=== PATIENT | male | born 1960 | race Caucasian/White ===

== ENCOUNTER 2016-12-06 09:50 | Day surgery (SDC) ==
[2016-12-05 13:29] LABS: MANUAL DIFF NEEDED? NO
--- NOTE | 2016-12-05 13:38 | EKG Report ---
Test Performed on : 12/05/2016 1:02:31 PM Test Reason : PAT Blood Pressure : / mmHG Vent. Rate : 066 BPM Atrial Rate : 066 BPM P-R Int : 136 ms QRS Dur : 096 ms QT Int : 392 ms P-R-T Axes : 060 028 060 degrees QTc Int : 410 ms Normal sinus rhythm. Normal ECG No previous ECGs available Confirmed by Marques Edwards MD ([id number]) on 12/05/2016 9:57:21 PM
[2016-12-05 13:44] LABS: BASO% 0.3 % (0.0-0.8); EOS# 0.27 X1000 (0.0-0.7); EOS% 4.4 % (0.0-10.0); HEMATOCRIT 42.2 % (42.0-52.0); HEMOGLOBIN 14.2 g/dL (14.0-18.0); LYMPH# 2.26 X1000 (1.2-3.4); MCH 31.6 PG (27-31); MCHC 33.6 g/dL (33-37); MCV 93.8 FL (81-99); MONO# 0.94 X1000 (0.11-0.59); MONO% 15.4 % (1.7-9.3); NEUT% 42.9 % (42.2-75.2); PLT 256 X1000 (130-400)
[2016-12-05 13:54] LABS: AGAP 11; BUN 21 mg/dL (8-22); CHLORIDE 104 mmol/L (98-107); COSMO 280; SODIUM 140 mmol/L (136-145); TCO2 25 mmol/L (25-35)
[2016-12-06] MEDS ORDERED: REGLAN ONE (10:20)
[2016-12-06] MEDS ORDERED: NS 1,000 ML ONE ×2 (10:20→15:42)
[2016-12-06] MEDS ORDERED: PEPCID ONE (10:20)
[2016-12-06] MEDS ORDERED: KEFZOL 1 GM/D5W 50 ML ONE (10:21)
[2016-12-06] MEDS ORDERED: DIPRIVAN 1% 50 ML ONE (13:36)
[2016-12-06] MEDS ORDERED: FENTANYL ONE (15:29)
[2016-12-06] MEDS ORDERED: VERSED ONE (15:29)
[2016-12-06] MEDS ORDERED: PHENERGAN IM PRN (15:34)
[2016-12-06] MEDS ORDERED: RESTORIL PO PRN (15:35)
[2016-12-06] MEDS ORDERED: MILK OF MAGNESIA PO PRN (15:36)
[2016-12-06] MEDS ORDERED: B & O 16A SUPP PR PRN (15:36)
[2016-12-06] MEDS ORDERED: B & O 16A SUPP ONE (15:48)
[2016-12-06] MEDS ORDERED: OFIRMEV 1000 MG/ISOTONIC SOLN 100 ML ONE (16:04)
[2016-12-06] MEDS ORDERED: DECADRON ONE (16:04)
[2016-12-06] MEDS ORDERED: XYLOCAINE-MPF 2% ONE (16:04)
[2016-12-06] MEDS ORDERED: LR 1,000 ML ONE (16:04)
[2016-12-06] MEDS ORDERED: ZOFRAN ONE (16:04)
[2016-12-06] MEDS ORDERED: HUMULIN R SUBQ SCH (18:00)
--- NOTE | 2016-12-06 18:18 | OPERATIVE NOTE ---
PROCEDURE DATE: 12/06/2016 PREOPERATIVE DIAGNOSES: Benign prostatic hypertrophy with bladder outlet obstruction. POSTOPERATIVE DIAGNOSIS: Benign prostatic hypertrophy with bladder outlet obstruction. In addition patient had 1 cm stone in the bladder. PROCEDURES: 1. Cystoscopy, removal of the bladder stones. 2. TUR prostate. ANESTHESIA: General. SURGEON: Dr. Stevens. PROCEDURE: The patient was prepped and draped under general anesthesia. Apparently the spinal anesthesia failed. At any rate, he was prepped and draped in the dorsal lithotomy position. A #21 rigid cystoscope was introduced in the bladder. The bladder was inspected. There was a stone in the base of the bladder which was mulberry type, 1 cm in size. So with the bladder biopsy forceps the stone was removed. TUR of prostate. This was done with the X[employer]reme [employer] 1+ system. The continuous flow resectoscope was introduced and the prostate was resected starting with the right lateral lobe and then the left lateral lobe. Finally the bladder neck area and the apex of the prostate. We had resected about 20 g. ESTIMATED BLOOD LOSS: Was about 100 mL. Then I put in a 22 3-0 Thomas catheter connected to a bedside bag. The patient tolerated the procedure well and returned to the recovery room in stable condition.
[2016-12-06] MEDS: NS 1,000 ML IV SCH (18:27)
[2016-12-06] MEDS ORDERED: INSULIN LISPRO 15 UNIT SQ SCH (18:30)
[2016-12-06] MEDS: DEMEROL IM PRN ×2 (18:52→22:52)
[2016-12-06] MEDS: GLUCOPHAGE PO SCH (18:53)
[2016-12-06] MEDS: PERICOLACE PO SCH (18:53)
[2016-12-06] MEDS ORDERED: PNEUMOVAX 23 IM ONE (19:45)
--- NOTE | 2016-12-06 20:37 | CONSULTATION ---
DATE OF CONSULTATION: 12/06/2016 CHIEF COMPLAINT: I was asked to follow up on postoperative medical management for diabetes. HISTORY OF PRESENT ILLNESS: He is a pleasant, 56-year-old, white gentleman, who was admitted to the hospital for TURP for BPH by Dr. Stevens. He denies any chest pain. He is a patient of Dr. Philip in [place]. PAST MEDICAL HISTORY: Type 2 diabetes, BPH, hypertension, hyperlipidemia. PAST SURGICAL HISTORY: Lumbar spine surgery, sinus surgery, vasectomy and right inguinal herniorrhaphy. MEDICATIONS PRIOR TO ADMISSION: Aspirin 81 mg daily, Rapaflo 8 mg daily, Humalog insulin on sliding scale, Levemir 26 units at bedtime, Flonase nasal spray daily, metformin 1000 p.o. b.i.d., lovastatin 40 mg daily, lisinopril/ hydrochlorothiazide 10/12.5 daily, finasteride 5 mg daily, multivitamin 1 tablet daily. ALLERGIES: Not known. SOCIAL HISTORY: for 24 years with 4 children. Smoking half a pack a day. No alcohol. FAMILY HISTORY: Mother living with heart failure. Dad had diabetes and bypass surgery. REVIEW OF SYSTEMS: HEENT: No headache. No dizziness. No earache. No sore throat. Neck: No goiter. No lymphadenopathy. No bruit. Cardiopulmonary: No chest pain, shortness of breath, PND, orthopnea. Gastrointestinal: No nausea, vomiting, abdominal pain. Genitourinary: Thomas was placed. Extremities: No swelling of legs. No joint pain. Neurologic: No focal symptoms or weakness. PHYSICAL EXAMINATION: Vital Signs: Stable. 6 feet 2 inches, 186 pounds. HEENT: Atraumatic, normocephalic. Pupils equal and reactive to light. TMs are normal. Nose and throat within normal limits. Neck: Supple. No lymphadenopathy. No goiter. Chest: Bilateral air entry. No rales. No wheezing. Heart: Sounds are regular. Belly is soft, nontender. Good bowel sounds. No masses palpable. He had EMERSON hose stockings. Neurologic Examination: Nonfocal. INVESTIGATIONS: White cell count 6.1, hematocrit 42, platelets 256,000, SMA 7 is normal. ASSESSMENT AND PLAN: 1. A 56-year-old white male status post transurethral resection of the prostate , doing very well. 2. Type 2 diabetes on metformin insulin, Levemir along with sliding scale. Last A1c was 6.2. 3. Hyperlipidemia on Mevacor. 4. Hypertension on lisinopril. Check labs in the morning. 5. DVT/GI prophylaxis as directed. Once again, thank you for the kind referral. DM
[2016-12-06] MEDS ORDERED: LEVEMIR SUBQ SCH (21:00)
[2016-12-06] MEDS: KEFZOL 1 GM/D5W 50 ML IV SCH (22:53)
[2016-12-06] MEDS ORDERED: INSULIN PEN NEEDLES ONE (23:00)
[2016-12-06] MEDS: PERIDEX MT SCH (23:02)
[2016-12-06] MEDS: HUMALOG SUBQ SCH (23:03)
[2016-12-07] MEDS: DEMEROL IM PRN ×3 (02:40→12:43)
[2016-12-07] MEDS: KEFZOL 1 GM/D5W 50 ML IV SCH ×2 (05:15→13:40)
[2016-12-07 06:04] LABS: MANUAL DIFF NEEDED? NO
[2016-12-07 06:05] LABS: BASO% 0.1 % (0.0-0.8); EOS# 0.08 X1000 (0.0-0.7); HEMATOCRIT 38.6 % (42.0-52.0); HEMOGLOBIN 13.3 g/dL (14.0-18.0); IMM GRAN# 0.02 X1000 (0.0-0.04); IMM GRAN% 0.3 % (0.0-0.5); LYMPH# 1.82 X1000 (1.2-3.4); LYMPH% 23.6 % (20.5-51.1); MCH 31.5 PG (27-31); MCHC 34.5 g/dL (33-37); MCV 91.5 FL (81-99); MONO# 0.98 X1000 (0.11-0.59); MONO% 12.7 % (1.7-9.3); MPV 10.1 FL (7.4-10.4); NEUT% 62.3 % (42.2-75.2); PLT 213 X1000 (130-400); RBC 4.22 XMIL (4.7-6.1)
[2016-12-07] MEDS: HUMALOG SUBQ SCH ×2 (06:17→11:15)
[2016-12-07 06:29] LABS: AGAP 9; BUN 13 mg/dL (8-22); CALCIUM 8.5 mg/dL (8.8-10.2); CHLORIDE 99 mmol/L (98-107); COSMO 273; POTASSIUM 4.4 mmol/L (3.5-5.1); SODIUM 134 mmol/L (136-145); TCO2 26 mmol/L (25-35)
[2016-12-07] MEDS: PERIDEX MT SCH (08:25)
[2016-12-07] MEDS: PERICOLACE PO SCH ×2 (08:26→12:44)
[2016-12-07] MEDS: GLUCOPHAGE PO SCH (08:26)
[2016-12-07] MEDS ORDERED: CENTRUM SILVER PO SCH (09:00)
[2016-12-07] MEDS ORDERED: FLONASE NAS SCH (09:00)
[2016-12-07] MEDS ORDERED: MEVACOR PO SCH (09:00)
[2016-12-07] MEDS ORDERED: PRINZIDE 10/12.5MG PO SCH (09:00)
[2016-12-07 11:31] VITALS: BP 115/62
[2016-12-07] MEDS: NS 1,000 ML IV SCH (11:49)
--- NOTE | 2016-12-07 16:04 | DISCHARGE SUMMARY ---
ADMISSION DATE: 12/06/2016 DISCHARGE DATE: 12/07/2016 DISCHARGE DIAGNOSES: 1. Benign prostatic hypertrophy with bladder outlet obstruction. 2. Bladder stones. 3. Diabetes type 2 out of control. PROCEDURES: 1. TURP. 2. Removal of bladder stones. COMPLICATIONS: None. HOSPITAL COURSE: The patient is being discharged home with a Thomas catheter connected to a leg bag. Discharge instructions were given. Discharge medications are Benita-Colace, [employer] 7.5, and doxycycline. Dr. Velazquez saw him in consultation for medical problems.
== END 2016-12-07 15:30 | disposition home or self-care (01) ==
LOC: PAT 09:50 → 4N 15:29 → UNDOADMOB 15:29 → PAT 12-07 15:30 → UNDODISOB 12-07 15:30
PROVIDERS: ATTEND Specialist
DX: N40.1 Benign prostatic hyperplasia with lower urinary tract symptoms (principal); N13.8 Other obstructive and reflux uropathy; N21.0 Calculus in bladder; E11.65 Type 2 diabetes mellitus with hyperglycemia; I10 Essential (primary) hypertension; E78.5 Hyperlipidemia, unspecified; F17.210 Nicotine dependence, cigarettes, uncomplicated; Z23 Encounter for immunization; Z79.899 Other long term (current) drug therapy; Z79.4 Long term (current) use of insulin; Z79.84 Long term (current) use of oral hypoglycemic drugs; Z79.82 Long term (current) use of aspirin; Z79.51 Long term (current) use of inhaled steroids; Z83.3 Family history of diabetes mellitus; Z82.49 Family history of ischemic heart disease and other diseases of the circulatory system
CPT/HCPCS: 80048; 82360; 82947; 82948; 85025; 88300; 88305; 90732; 93005; 93010; 94799; J0131; J0690; J1100; J1815; J2175; J2250; J2405; J3010; J7030; J7120